=== PATIENT | female | born 1975 | race Caucasian/White ===

== ENCOUNTER 2016-06-25 12:57 | Emergency (ER) | payer BC ==
[2016-06-25 13:16] VITALS: RESP 18
[2016-06-25] MEDS ORDERED: SODIUM CHLORIDE 0.9% 1,000 ML IV STA (14:39)
[2016-06-25] MEDS ORDERED: RX INFO: IV CONTRAST WAS GIVEN 1 EACH MISC MISCELLANE PRN (14:39)
[2016-06-25 15:07] LABS: Basophils % (A) 0 %; CHCM 33.5; Eosinophils # (A) 0.2 k/uL (0-0.7); Eosinophils % (A) 1 %; HCT 43.1 % (34.0-46.0); HDW 2.52; HGB 14.7 gm/dL (11.4-16.0); Luc # (Auto) 0.15; Luc % (Auto) 1; Lymphocytes # (A) 1.7 k/uL (1.0-4.8); Lymphocytes % (A) 14 %; MCH 30.6 pg (25.0-35.0); Mean Platelet Volume 7.1; Monocytes # (A) 0.6 k/uL (0-1.0); Monocytes % (A) 5 %; Neutrophils # (A) 9.4 k/uL (1.3-7.7); Neutrophils % (A) 78 %; RBC 4.79 m/uL (3.80-5.40); RDW 12.1 % (11.5-15.5); WBC (Perox) 12.01
--- NOTE | 2016-06-25 15:15 | ED ---
Abdominal Pain HPI - General Chief Complaint: Abdominal Pain Stated Complaint: Abd Pain Time Seen by Provider: 06/25/16 14:33 Source: patient, RN notes reviewed Mode of arrival: ambulatory Limitations: no limitations - History of Present Illness Initial Comments: 40-year-old female presents emergency Department chief complaint lower abdominal pain. Patient states this started over the weekend progressively gotten worse. Patient states she went to my expressed she noticed that she had increased right lower quadrant abdominal pain, sore throat. She states that she had a strep and urinalysis which were negative. Patient was sent here for further evaluation to rule out appendicitis. Patient states he had low-grade temps at home generalized not feeling well. She denies any dysuria or hematuria at this time. Patient denies any chest pain or shortness of breath. She states that movement makes it worse sitting ordered bumps in the road. Patient states that she's had a prior hysterectomy and cholecystectomy. Patient denies any sick contacts no body aches no cough or chest congestion. - Related Data Home Medications Medication Instructions Recorded Confirmed Dexlansoprazole [Dexilant] 60 mg PO QAM 01/26/15 06/25/16 LORazepam [Ativan] 0.5 mg PO TID PRN 01/26/15 06/25/16 Acetaminophen Tab [Tylenol Tab] 975 mg PO Q4H PRN 06/25/16 06/25/16 Allergies Allergy/AdvReac Type Severity Reaction Status Date / Time gluten AdvReac Diarrhea Verified 06/25/16 14:32 Review of Systems ROS Statement: Those systems with pertinent positive or pertinent negative responses have been documented in the HPI. ROS Other: All systems not noted in ROS Statement are negative. Past Medical History Past Medical History: GERD/Reflux, Neurologic Disorder, Osteoarthritis (OA), Thyroid Disorder Additional Past Medical History / Comment(s): migraines History of Any Multi-Drug Resistant Organisms: None Reported Past Surgical History: Cholecystectomy, Uterine Ablation Additional Past Surgical History / Comment(s): episiotomy repair Past Anesthesia/Blood Transfusion Reactions: No Reported Reaction Past Psychological History: Anxiety Smoking Status: Never smoker Past Alcohol Use History: Occasional Past Drug Use History: None Reported - Past Family History Mother Family Medical History: No Reported History General Exam Limitations: no limitations General appearance: alert, in no apparent distress Head exam: Present: atraumatic, normocephalic, normal inspection Respiratory exam: Present: normal lung sounds bilaterally. Absent: respiratory distress, wheezes, rales, rhonchi, stridor Cardiovascular Exam: Present: regular rate, normal rhythm, normal heart sounds. Absent: systolic murmur, diastolic murmur, rubs, gallop, clicks GI/Abdominal exam: Present: soft, tenderness (Moderate lower quadrant tenderness ), normal bowel sounds. Absent: distended, guarding, rebound, rigid Back exam: Present: CVA tenderness (R). Absent: CVA tenderness (L) Neurological exam: Present: alert, oriented X3, CN II-XII intact Skin exam: Present: warm, dry, intact, normal color. Absent: rash Course Vital Signs 06/25/16 06/25/16 13:13 14:54 Temperature 99.5 F 98 F Pulse Rate 100 82 Respiratory 18 18 Rate Blood Pressure 110/60 116/66 O2 Sat by Pulse 97 98 Oximetry Medical Decision Making - Medical Decision Making 40-year-old female presents emergency department for lower abdominal pain. Patient is a 4 cm ovarian cyst. Patient's pain has been present for 4 days. Patient states pain seems to wax and wane. Did discuss about possible torsion neck and him. Patient's pain she states is actually improving at this time and has lessened. Patient states that she can follow-up with [facility] and return if worse for possible ultrasound. Return parameters were discussed. - Lab Data Result diagrams: 06/25/16 14:50 06/25/16 14:50 Lab Results 06/25/16 06/25/16 06/25/16 Range/Units 14:50 14:50 14:50 WBC 12.0 H (3.8-10.6) k/uL RBC 4.79 (3.80-5.40) m/uL Hgb 14.7 (11.4-16.0) gm/dL Hct 43.1 (34.0-46.0) % MCV 90.0 (80.0-100.0) fL MCH 30.6 (25.0-35.0) pg MCHC 34.0 (31.0-37.0) g/dL RDW 12.1 (11.5-15.5) % Plt Count 248 (150-450) k/uL Neutrophils % 78 % Lymphocytes % 14 % Monocytes % 5 % Eosinophils % 1 % Basophils % 0 % Neutrophils # 9.4 H (1.3-7.7) k/uL Lymphocytes # 1.7 (1.0-4.8) k/uL Monocytes # 0.6 (0-1.0) k/uL Eosinophils # 0.2 (0-0.7) k/uL Basophils # 0.0 (0-0.2) k/uL Sodium 140 (137-145) mmol/L Potassium 4.0 (3.5-5.1) mmol/L Chloride 104 (98-107) mmol/L Carbon Dioxide 24 (22-30) mmol/L Anion Gap 12 mmol/L BUN 11 (7-17) mg/dL Creatinine 0.79 (0.52-1.04) mg/dL Est GFR (MDRD) Af Amer >60 (>60 ml/min/1.73 sqM) Est GFR (MDRD) Non-Af >60 (>60 ml/min/1.73 sqM) Glucose 88 (74-99) mg/dL Calcium 9.4 (8.4-10.2) mg/dL Total Bilirubin 1.9 H (0.2-1.3) mg/dL AST 26 (14-36) U/L ALT 48 (9-52) U/L Alkaline Phosphatase 66 (38-126) U/L Total Protein 8.4 H (6.3-8.2) g/dL Albumin 4.8 (3.5-5.0) g/dL Amylase 51 (30-110) U/L Lipase 90 (23-300) U/L Heterophile Antibody Negative (Negative) Disposition Clinical Impression: Ovarian cyst Disposition: HOME SELF-CARE Condition: Stable Instructions: Ovarian Cyst (ED) Additional Instructions: Please return to the Emergency Department if symptoms worsen or any other concerns. Referrals: Chiki Tarango Jr, DO [Primary Care Provider] - 1-2 days Lay Marshall DO [Doctor of Osteopathic Medicine] - 1-2 days Time of Disposition: 16:01
[2016-06-25 15:18] LABS: ALT 48 U/L (9-52); AST 26 U/L (14-36); Alkaline Phosphatase 66 U/L (38-126); Amylase 51 U/L (30-110); Anion Gap 12 mmol/L; Blood Urea Nitrogen 11 mg/dL (7-17); Calcium 9.4 mg/dL (8.4-10.2); Carbon Dioxide 24 mmol/L (22-30); Chloride 104 mmol/L (98-107); Glucose 88 mg/dL (74-99); Non-African American GFR(MDRD) >60 (>60 ml/min/1.73 sqM); Sodium 140 mmol/L (137-145); Total Bilirubin 1.9 mg/dL (0.2-1.3); Total Protein 8.4 g/dL (6.3-8.2)
--- NOTE | 2016-06-25 15:42 | CT ---
EXAMINATION TYPE: CT abdomen pelvis w con DATE OF EXAM: 06/25/2016 3:29 PM HISTORY: Patient complains of right lower quadrant pain and nausea. CT DLP: 904mGycm Automated Exposure Control for Dose Reduction was Utilized. CONTRAST: CT scan of the abdomen and pelvis is performed without oral but with IV Contrast, patient injected wi th 100 mL of Omnipaque 300. COMPARISON: CT abdomen January 02, 2015. Older CT abdomen and pelvis December 24, 2013 FINDINGS: LUNG BASES: No significant abnormality is appreciated. LIVER/GB: Cholecystectomy clips are redemonstrated. PANCREAS: No significant abnormality is seen. SPLEEN: No significant abnormality is seen. ADRENALS: No significant abnormality is seen. KIDNEYS: There are 2 small calculi lower pole level left kidney measuring 3 mm or smaller in size red emonstrated felt stable. BOWEL: Normal-appearing appendix is seen from cecum. Some diverticula are scattered throughout the co radha. There is no CT evidence for acute diverticulitis. There is no suspicious small or large bowel di latation. UTERUS/ADNEXA: There are scattered pelvic phleboliths redemonstrated. Uterus is surgically absent or markedly atrophic in appearance. Remnant left ovary is normal in size on axial image 63. In the right ovary or adnexa there is 4.7 x 4.2 cm low dense oval well-circumscribed cyst on axial image 63 now p resent. LYMPH NODES: No greater than 1cm abdominal or pelvic lymph nodes are appreciated. OSSEOUS STRUCTURES: No significant abnormality is seen. OTHER: No significant additional abnormality is seen. IMPRESSION: No CT evidence for acute appendicitis. There is 4.7 cm low dense probable simple cyst in right ovary. If there is clinical concern for torsion given history of right-sided pain further inves tigation with pelvic ultrasound correlation would be advised.
[2016-06-25 16:38] VITALS: BP 117/67; PULSE 89; TEMP 98.7
== END 2016-06-25 16:37 | disposition home or self-care (01) ==
LOC: EC 12:57
DX: N83.201 Unspecified ovarian cyst, right side (principal); K21.9 Gastro-esophageal reflux disease without esophagitis; Z79.899 Other long term (current) drug therapy; Z91.048 Other nonmedicinal substance allergy status
CPT/HCPCS: 36415; 80053; 82150; 83690; 85025; 86308; 74177; 99284; 96360; Q9967

== ENCOUNTER → 2016-07-04 | Outpatient (CLI) | payer BC | END | disposition home or self-care (01) | LOC: LABWHC1 08:54 | PROVIDERS: ATTEND Obstetrics & Gynecology | DX: N83.201 Unspecified ovarian cyst, right side (principal) | CPT/HCPCS: 36415; 86304 ==

== ENCOUNTER → 2017-05-11 | Outpatient (CLI) | payer BC ==
--- NOTE | 2017-05-11 10:58 | XR ---
EXAMINATION TYPE: XR abdomen 1V DATE OF EXAM: 05/11/2017 10:34 AM CLINICAL HISTORY: Hematuria per order TECHNIQUE: Two supine KUB images of the abdomen are obtained. COMPARISON: CT abdomen pelvis June 25, 2016 FINDINGS: Small renal calculi seen on CT are not clearly identified on plain films. Scattered pelvic phleboliths are seen. Scattered gas is seen in non-distended small bowel loops. Gas and fecal material is seen in non-diste nded colon. Cholecystectomy clips are noted. Visualized osseous structures are intact. IMPRESSION: There are 2-3 tiny left-sided renal calculi measuring 2 mm or smaller in size lower pole level left kidney on CT not clearly seen on plain films.
== END | disposition home or self-care (01) ==
LOC: RADXRMAIN 10:22
PROVIDERS: ATTEND Family Medicine
DX: N20.0 Calculus of kidney (principal)
CPT/HCPCS: 74018

== ENCOUNTER → 2018-03-01 | Outpatient (CLI) | payer BC ==
--- NOTE | 2018-03-04 10:36 | MM ---
Reason for exam: screening (asymptomatic). Last mammogram was performed 5 years and 3 months ago. History: Patient had first child at age 33. Took hormonal contraceptives for 16 years. Physical Findings: A clinical breast exam by your physician is recommended on an annual basis and results should be correlated with mammographic findings. MG 3D Screening Mammo W/Cad Bilateral CC and MLO view(s) were taken. Prior study comparison: November 17, 2012, bilateral digital screening mammo w/CAD. The breast tissue is heterogeneously dense. This may lower the sensitivity of mammography. Focal asymmetry upper left MLO view, 10.4cm from nipple. ASSESSMENT: Incomplete: need additional imaging evaluation, BI-RAD 0 RECOMMENDATION: Special view mammogram of the left breast. If lesion persists on supplemental views, image directed ultrasound is recommended. [facility] will attempt to contact patient to return for supplemental views and ultrasound if indicated.
== END ==
LOC: RADMAMWWP 07:03
PROVIDERS: ATTEND Obstetrics & Gynecology
DX: Z12.31 Encounter for screening mammogram for malignant neoplasm of breast (principal)
CPT/HCPCS: 77063; 77067

== ENCOUNTER → 2018-03-22 | Outpatient (CLI) | payer BC ==
--- NOTE | 2018-03-26 10:57 | MM ---
Reason for exam: additional evaluation requested from abnormal screening. Last mammogram was performed 1 month ago. History: Patient had first child at age 33. Took hormonal contraceptives for 16 years. Physical Findings: Nurse did not find any significant physical abnormalities on exam. MG 3D Work Up W/Cad LT LM, spot compression MLO, and MLO view(s) were taken of the left breast. Prior study comparison: March 01, 2018, bilateral MG 3d screening mammo w/cad. November 17, 2012, bilateral digital screening mammo w/CAD. There are scattered fibroglandular densities. The previously seen left posterior depth superior asymmetry does not persist on the lateral view and although improved on the spot compression views it does still persist. and an ultrasound will be performed. ASSESSMENT: Incomplete: need additional imaging evaluation, BI-RAD 0 RECOMMENDATION: Ultrasound of the left breast.
--- NOTE | 2018-03-26 11:00 | USB ---
Reason for exam: additional evaluation requested from prior study. History: Patient had first child at age 33. Took hormonal contraceptives for 16 years. US Breast Workup Limited LT Left limited breast ultrasound including focal area of concern, retroareolar and axilla demonstrates no cystic or solid lesion seen. No sonographic correlation for the mammographic asymmetry. These results were verbally communicated with the patient and result sheet given to the patient on 03/22/18. ASSESSMENT: Probably benign, BI-RAD 3 RECOMMENDATION: Follow-up diagnostic mammogram of the left breast in 6 months.
== END ==
LOC: RADMAMWWP 08:17
PROVIDERS: ATTEND Obstetrics & Gynecology
DX: R92.8 Other abnormal and inconclusive findings on diagnostic imaging of breast (principal)
CPT/HCPCS: 77061; 77065

== ENCOUNTER 2018-09-18 22:51 | Observation (INO) | payer BC ==
--- NOTE | 2018-09-18 23:32 | ED ---
Abdominal Pain HPI - General Chief Complaint: Abdominal Pain Stated Complaint: Abdominal Pain Time Seen by Provider: 09/18/18 23:31 Source: patient Mode of arrival: ambulatory Limitations: no limitations - History of Present Illness Initial Comments: Cynthia 43-year-old female who presents the emergency department today for evaluation of sudden onset of right lower quadrant abdominal pain. Patient reports that she has a extensive history of ovarian cysts and can usually deal with the pain however this evening she ate dinner around 9 PM she does admit that she had one alcoholic drink but did not feel intoxicated, she reports that after eating she started up and had immediate stabbing pain in her right lower quadrant. She's tried to tolerate it but the pain is progressively worsened and is unbearable. Patient port this pain is much worse than her typical ovarian cyst pain. Patient reports she feels nauseated but has not vomited. She's not had any diarrhea she had a normal bowel movement yesterday. Patient has a history of a cholecystectomy in the past she still has her appendix in place. She is also status post hysterectomy with no concern for sexually transmitted infections. - Related Data Home Medications Medication Instructions Recorded Confirmed Dexlansoprazole [Dexilant] 60 mg PO QAM 01/26/15 06/25/16 LORazepam [Ativan] 0.5 mg PO TID PRN 01/26/15 06/25/16 Acetaminophen Tab [Tylenol Tab] 975 mg PO Q4H PRN 06/25/16 06/25/16 Allergies Allergy/AdvReac Type Severity Reaction Status Date / Time gluten AdvReac Diarrhea Verified 03/22/18 09:15 Review of Systems ROS Statement: Those systems with pertinent positive or pertinent negative responses have been documented in the HPI. ROS Other: All systems not noted in ROS Statement are negative. Past Medical History Past Medical History: GERD/Reflux, Neurologic Disorder, Osteoarthritis (OA), Th yroid Disorder Additional Past Medical History / Comment(s): migraines, ovarian cysts. History of Any Multi-Drug Resistant Organisms: None Reported Past Surgical History: Cholecystectomy, Uterine Ablation Additional Past Surgical History / Comment(s): episiotomy repair Past Anesthesia/Blood Transfusion Reactions: No Reported Reaction Past Psychological History: Anxiety Smoking Status: Never smoker Past Alcohol Use History: Occasional Past Drug Use History: None Reported - Past Family History Mother Family Medical History: No Reported History General Exam - General Exam Comments Initial Comments: Physical Exam GENERAL: Patient is well-developed and well-nourished. appears uncomfortable HEENT: Normocephalic, Atraumatic. EYES: PERRL, EOMI PULMONARY: Unlabored respirations. No audible rales rhonchi or wheezing was noted. CARDIOVASCULAR: There is a regular rate and rhythm without any murmurs gallops or rubs. ABDOMEN: NABS Positive Rovsing sign Positive McBurney's point tenderness Involuntary guarding of the right lower quadrant SKIN: Skin is clear with no lesions or rashes and otherwise unremarkable. : Deferred NEUROLOGIC: Patient is alert and oriented x3. Moving all extremities spontaneously MUSCULOSKELETAL: Normal extremities with adequate strength and full range of motion. No lower extremity swelling or edema. No calf tenderness. PSYCHIATRIC: Normal psychiatric evaluation Limitations: no limitations Course Vital Signs 09/18/18 23:17 Temperature 98.3 F Pulse Rate 74 Respiratory 18 Rate Blood Pressure 121/82 O2 Sat by Pulse 99 Oximetry Medical Decision Making - Medical Decision Making Patient was seen and evaluated history is obtained from the patient Patient was concerned that she has an ovarian cyst however based on my physical exam I do believe the patient has acute appendicitis, labs and computed lianet ography scan were ordered Patient declined pain medication as it usually makes her nausea worse CT confirms acute appendicitis next 5 patient care was discussed with surgeon on-call Dr. Lynn who recommends patient be placed in obs, NPO, plan for OR in the morning Patient updated and agreeable to plan Patient did want to note that she had 1 alcoholic beverage at dinner but was not intoxicated, she wanted to ensure anesthesia was aware of this. - Lab Data Result diagrams: 09/19/18 02:05 Lab Results 09/19/18 Range/Units 02:05 WBC 14.3 H (3.8-10.6) k/uL RBC 4.05 (3.80-5.40) m/uL Hgb 12.3 (11.4-16.0) gm/dL Hct 37.0 (34.0-46.0) % MCV 91.4 (80.0-100.0) fL MCH 30.3 (25.0-35.0) pg MCHC 33.2 (31.0-37.0) g/dL RDW 12.8 (11.5-15.5) % Plt Count 214 (150-450) k/uL Neutrophils % 76 % Lymphocytes % 15 % Monocytes % 5 % Eosinophils % 2 % Basophils % 0 % Neutrophils # 10.9 H (1.3-7.7) k/uL Lymphocytes # 2.2 (1.0-4.8) k/uL Monocytes # 0.8 (0-1.0) k/uL Eosinophils # 0.2 (0-0.7) k/uL Basophils # 0.1 (0-0.2) k/uL Disposition Clinical Impression: Acute appendicitis Disposition: ADMITTED IP TO THIS HOSP Condition: Stable Is patient prescribed a controlled substance at d/c from ED?: No Referrals: Chiki Tarango Jr, DO [Primary Care Provider] - 1-2 days
--- NOTE | 2018-09-19 02:07 | CT ---
EXAM: CT Abdomen and Pelvis With Intravenous Contrast CLINICAL HISTORY: ITS.REASON CT Reason: Pain RLQ concern for appy TECHNIQUE: Axial computed tomography images of the abdomen and pelvis with intravenous contrast. CTDI is 21 mGy and DLP is 953 mGy-cm. This CT exam was performed using one or more of the following dose reduction techniques: automated exposure control, adjustment of the mA and/or kV according to patient size, and/or use of iterative reconstruction technique. COMPARISON: 06/25/16 CT abdomen FINDINGS: Lung bases: No mass. No consolidation. ABDOMEN: Liver: Steatosis. Gallbladder and bile ducts: Removed. Pancreas: Unremarkable. Spleen: Unremarkable. Adrenals: Unremarkable. Kidneys and ureters: No hydronephrosis. Stomach and bowel: No bowel obstruction. No bowel wall thickening. PELVIS: Appendix: Dilated to 10 mm with surrounding stranding. Bladder: Unremarkable. Reproductive: Unremarkable. ABDOMEN and PELVIS: Intraperitoneal space: Unremarkable. Bones/joints: No acute fractures. Soft tissues: Unremarkable. Vasculature: No abdominal aortic aneurysm. Lymph nodes: No enlarged lymph nodes. IMPRESSION: 1. Evidence of acute appendicitis. No abscess, perforation, or bowel obstruction. 2. Hepatic steatosis. <MYCVCSECTION> Critical Value Communications 09/19/18 02:19 Verify Receipt Verified receipt with [facility] in ER for Dr. Andre on 09/19 02:21 (-04:00)
[2018-09-19 02:20] LABS: Basophils # (A) 0.1 k/uL (0-0.2); Basophils % (A) 0 %; Eosinophils # (A) 0.2 k/uL (0-0.7); Eosinophils % (A) 2 %; HGB 12.3 gm/dL (11.4-16.0); Lymphocytes # (A) 2.2 k/uL (1.0-4.8); Lymphocytes % (A) 15 %; MCH 30.3 pg (25.0-35.0); MCHC 33.2 g/dL (31.0-37.0); MCV 91.4 fL (80.0-100.0); Mean Platelet Volume 7.1; Monocytes # (A) 0.8 k/uL (0-1.0); Monocytes % (A) 5 %; Neutrophils # (A) 10.9 k/uL (1.3-7.7); Neutrophils % (A) 76 %; Platelet Count 214 k/uL (150-450); RBC 4.05 m/uL (3.80-5.40); RDW 12.8 % (11.5-15.5); WBC 14.3 k/uL (3.8-10.6)
[2018-09-19] MEDS ORDERED: ONDANSETRON 4 MG/2 ML VIAL IVP STA (02:20)
[2018-09-19] MEDS ORDERED: ONDANSETRON 4 MG/2 ML VIAL IVP PRN (02:23)
[2018-09-19] MEDS ORDERED: NALOXONE 0.4 MG/ML 1 ML VIAL IV PRN (02:23)
[2018-09-19] MEDS ORDERED: MORPHINE SULFATE 4 MG/ML SYRINGE IV PRN (02:23)
[2018-09-19 02:30] LABS: ALT 55 U/L (9-52); AST 27 U/L (14-36); African American GFR (CKD) >90 (>60 ml/min/1.73 sqM); Albumin 3.8 g/dL (3.5-5.0); Alkaline Phosphatase 45 U/L (38-126); Amylase 40 U/L (30-110); Blood Urea Nitrogen 15 mg/dL (7-17); Calcium 8.8 mg/dL (8.4-10.2); Carbon Dioxide 23 mmol/L (22-30); Glucose 98 mg/dL (74-99); Potassium 3.6 mmol/L (3.5-5.1); Sodium 138 mmol/L (137-145); Total Bilirubin 0.9 mg/dL (0.2-1.3); Total Protein 6.5 g/dL (6.3-8.2)
[2018-09-19 02:37] LABS: Anion Gap 9 mmol/L; Chloride 106 mmol/L (98-107)
[2018-09-19 02:38] LABS: Appearance,Urine Clear (Clear); Bilirubin,Urine Negative (Negative); Blood,Urine Negative (Negative); Color,Urine Light Yellow; Glucose,Urine (UA) Negative (Negative); Ketones,Urine Negative (Negative); Leukocyte Esterase,Urine Negative (Negative); Nitrite,Urine Negative (Negative); Protein,Urine Negative (Negative); Urobilinogen,Urine <2.0 mg/dL (<2.0)
[2018-09-19] MEDS: SODIUM CHLORIDE 0.9% 1,000 ML IV SCH ×2 (02:41→14:47)
[2018-09-19] MEDS: PIPERACILLIN-TAZOBACTAM 3.375 GM in SODIUM CHLORIDE 0.9% 100 ML IVPB SCH ×3 (03:24→19:16)
[2018-09-19 04:00] VITALS: BMI 29.0
--- NOTE | 2018-09-19 08:44 | P.GSHP ---
History of Present Illness H&P Date: 09/19/18 Chief Complaint: Right-sided abdominal pain 43-year-old female known to our service. Patient began having pain last night around 9 PM. Pain became more more severe and came to the ER late last night. Pain was initially in the mid abdomen but radiated to the right lower quadrant. Now it is only in the right lower quadrant. White blood cell count was slightly elevated. No fevers or chills. Some nausea. CAT scan was performed showing acute appendicitis. Patient does have history of occasional episodes of right lower quadrant pain at times. Thought was related to an ovarian cyst. No rectal bleeding or melena. - Review of Systems Comment: The patient denies any acute changes in vision or hearing, no dysphagia or odynophagia, no chest pain or shortness of breath, no dysuria or hematuria, no headache, no runny nose, no rectal bleeding or melena, no unexplained weight loss Past Medical History Past Medical History: GERD/Reflux, Osteoarthritis (OA), Thyroid Disorder Additional Past Medical History / Comment(s): migraines, ovarian cysts History of Any Multi-Drug Resistant Organisms: None Reported Past Surgical History: Cholecystectomy, Uterine Ablation Additional Past Surgical History / Comment(s): episiotomy repair, appendectomy 09/19/18 Past Anesthesia/Blood Transfusion Reactions: No Reported Reaction Past Psychological History: Anxiety Smoking Status: Never smoker Past Alcohol Use History: Occasional Past Drug Use History: None Reported - Past Family History Mother Family Medical History: No Reported History Medications and Allergies Home Medications Medication Instructions Recorded Confirmed Type LORazepam [Ativan] 0.5 mg PO TID PRN 01/26/15 09/19/18 History Rizatriptan Benzoate [Rizatriptan] 10 mg PO DAILY PRN 09/19/18 09/19/18 History Allergies Allergy/AdvReac Type Severity Reaction Status Date / Time gluten AdvReac Diarrhea Verified 09/19/18 08:11 Surgical - Exam Vital Signs Temp Pulse Resp BP Pulse Ox 98.3 F 74 18 121/82 99 09/18/18 23:17 09/18/18 23:17 09/18/18 23:17 09/18/18 23:17 09/18/18 23:17 Physical exam: General: Well-developed, well-nourished HEENT: Normocephalic, sclerae nonicteric Abdomen: Moderate right lower quadrant tenderness, nondistended Extremities: No edema Neuro: Alert and oriented Results - Labs 09/19/18 02:05 09/19/18 02:05 Abnormal Lab Results - Last 24 Hours (Table) 09/19/18 09/19/18 09/19/18 Range/Units 02:05 02:05 02:23 WBC 14.3 H (3.8-10.6) k/uL Neutrophils # 10.9 H (1.3-7.7) k/uL ALT 55 H (9-52) U/L Ur Specific Mckenna 1.050 H (1.001-1.035) Diabetes panel 09/19/18 Range/Units 02:05 Sodium 138 (137-145) mmol/L Potassium 3.6 (3.5-5.1) mmol/L Chloride 106 (98-107) mmol/L Carbon Dioxide 23 (22-30) mmol/L BUN 15 (7-17) mg/dL Creatinine 0.61 (0.52-1.04) mg/dL Glucose 98 (74-99) mg/dL Calcium 8.8 (8.4-10.2) mg/dL AST 27 (14-36) U/L ALT 55 H (9-52) U/L Alkaline Phosphatase 45 (38-126) U/L Total Protein 6.5 (6.3-8.2) g/dL Albumin 3.8 (3.5-5.0) g/dL Calcium panel 09/19/18 Range/Units 02:05 Calcium 8.8 (8.4-10.2) mg/dL Albumin 3.8 (3.5-5.0) g/dL Pituitary panel 09/19/18 Range/Units 02:05 Sodium 138 (137-145) mmol/L Potassium 3.6 (3.5-5.1) mmol/L Chloride 106 (98-107) mmol/L Carbon Dioxide 23 (22-30) mmol/L BUN 15 (7-17) mg/dL Creatinine 0.61 (0.52-1.04) mg/dL Glucose 98 (74-99) mg/dL Calcium 8.8 (8.4-10.2) mg/dL Adrenal panel 09/19/18 Range/Units 02:05 Sodium 138 (137-145) mmol/L Potassium 3.6 (3.5-5.1) mmol/L Chloride 106 (98-107) mmol/L Carbon Dioxide 23 (22-30) mmol/L BUN 15 (7-17) mg/dL Creatinine 0.61 (0.52-1.04) mg/dL Glucose 98 (74-99) mg/dL Calcium 8.8 (8.4-10.2) mg/dL Total Bilirubin 0.9 (0.2-1.3) mg/dL AST 27 (14-36) U/L ALT 55 H (9-52) U/L Alkaline Phosphatase 45 (38-126) U/L Total Protein 6.5 (6.3-8.2) g/dL Albumin 3.8 (3.5-5.0) g/dL Assessment and Plan (1) Acute appendicitis Narrative/Plan: Clinical scenario discussed with the patient in detail. We'll proceed with laparoscopic, possible open appendectomy at this time. Risks of bleeding, infection, bladder and bowel injury, abscess, ureteral injury, conversion were reviewed. She understands and wishes to proceed. Current Visit: Yes Status: Acute Code(s): K35.80 - UNSPECIFIED ACUTE APPENDICITIS SNOMED Code(s): 57390137
[2018-09-19] MEDS ORDERED: MIDAZOLAM 2 MG/2 ML VIAL ONE (09:30)
[2018-09-19] MEDS ORDERED: GLYCOPYRROLATE 0.2 MG/ML 2 ML VIAL ONE (09:30)
[2018-09-19] MEDS ORDERED: PROPOFOL 10 MG/ML 20 ML VIAL IV ONE (09:30)
[2018-09-19] MEDS ORDERED: LIDOCAINE 1% INJ 10MG/ML (20 ML MDV) ONE (09:30)
[2018-09-19] MEDS ORDERED: fentaNYL (PF) 50 MCG/ML 2 ML AMP ONE (09:30)
[2018-09-19] MEDS ORDERED: SUCCINYLCHOLINE CHLORIDE 100 MG/5 ML SYR IV ONE (09:30)
[2018-09-19] MEDS ORDERED: ROCURONIUM BROMIDE 10 MG/ML 10 ML VIAL IV ONE (09:30)
[2018-09-19] MEDS ORDERED: NEOSTIGMINE 1 MG/ML 10 ML VIAL ONE (09:30)
[2018-09-19] MEDS ORDERED: IV FLUID CONTINUATION 400 ML IV ONE (09:33)
[2018-09-19] MEDS ORDERED: LACTATED RINGERS 1,000 ML IV ONE ×2 (09:51→10:51)
[2018-09-19] MEDS ORDERED: BUPIVACAINE (PF) 0.25% 30 ML VIAL SQ ONE (10:01)
--- NOTE | 2018-09-19 10:37 | P.OP ---
Date of Procedure: 09/19/18 Procedure(s) Performed: PREOPERATIVE DIAGNOSIS: Acute appendicitis POSTOPERATIVE DIAGNOSIS: Same PROCEDURE: Laparoscopic appendectomy SURGEON: Shane EBL: 5 mL ANESTHESIA: General COMPLICATIONS: None OPERATIVE PROCEDURE: The patient was brought and placed on the operating table in the supine position. The patient was placed under general anesthesia. The abdomen was prepped and draped in the usual sterile fashion. A small vertical infraumbilical incision was made. The fascia was retracted anteriorly with Marshal forceps. The Veress needle was advanced into the peritoneal cavity. The saline drop test was normal. Insufflation took place to 15 mmHg. A 5 mm trocar was then placed. An additional 5 mm suprapubic trocar was placed under direct visualization as well as a 12 mm left lower quadrant trocar under direct visualization. The appendix was inspected. It was acutely inflamed. The mesoappendix was dissected. The base of the appendix was divided using a linear 45 mm intestinal stapler. The mesentery itself was righted using the LigaSure device. The area was then irrigated. No further purulence or bleeding was seen. The appendix was brought out of the peritoneal cavity through the left lower quadrant trocar site with an Endo Catch bag. The fascia at the 12 mm site was closed using a Savage-Priyank 0 Vicryl stitch. The skin at all 3 sites was closed using 4-0 Monocryl sutures. Skin glue was then applied. DISPOSITION: Stable to recovery room
[2018-09-19] MEDS ORDERED: ONDANSETRON 4 MG/2 ML VIAL IVP ONE (10:38)
[2018-09-19] MEDS ORDERED: HYDROmorphone 1 MG/ML 1 ML SYRINGE IVP ONE ×2 (10:40→10:45)
[2018-09-19] MEDS ORDERED: METOCLOPRAMIDE 5 MG/ML 2 ML VIAL IVP ONE (10:58)
[2018-09-19] MEDS: HYDROcodone/APAP 5-325MG 1 EACH TAB PO PRN ×3 (14:43→23:32)
[2018-09-20] MEDS: SODIUM CHLORIDE 0.9% 1,000 ML IV SCH (00:29)
[2018-09-20] MEDS: PIPERACILLIN-TAZOBACTAM 3.375 GM in SODIUM CHLORIDE 0.9% 100 ML IVPB SCH ×2 (03:51→12:57)
[2018-09-20] MEDS: HYDROcodone/APAP 5-325MG 1 EACH TAB PO PRN (08:47)
[2018-09-20] MEDS ORDERED: METOCLOPRAMIDE 5 MG/ML 2 ML VIAL IVP STA (09:35)
[2018-09-20] MEDS ORDERED: Potassium Replacement Protocol 1 EACH MISC MISCELLANE PRN ×2 (10:49→11:48)
[2018-09-20 11:25] VITALS: BP 103/67; PULSE 61; RESP 18; TEMP 98.1
--- NOTE | 2018-09-20 11:50 | P.DS ---
Providers Date of admission: 09/19/18 02:29 Expected date of discharge: 09/20/18 Attending physician: Tito Lynn Primary care physician: [facility] Course: 43-year-old female who presents to emergency room with abdominal pain. Patient was found to have acute appendicitis and underwent laparoscopic appendectomy with Dr. Lynn on 09/19/2018. Patient is doing well postoperatively without any immediate complications. Vital signs have been stable. She is tolerating diet. Denies nausea or vomiting. She is stable for discharge home today. Please see EMR for further hospital course details Discharge diagnosis 1. Acute appendicitis Nurse practitioner note has been reviewed by physician. Signing provider agrees with the documented findings, assessment, and plan of care. Patient Condition at Discharge: Stable Plan - Discharge Summary New Discharge Prescriptions: New Hydrocodone/Acetaminophen [[place] 5-325] 1 tab PO Q6HR PRN 3 Days #10 tab PRN Reason: Pain Docusate [Colace] 100 mg PO BID #30 capsule No Action LORazepam [Ativan] 0.5 mg PO TID PRN PRN Reason: Anxiety Rizatriptan Benzoate [Rizatriptan] 10 mg PO DAILY PRN PRN Reason: Migraine Headache Discharge Medication List LORazepam [Ativan] 0.5 mg PO TID PRN 01/26/15 [History] Hydrocodone/Acetaminophen [[place] 5-325] 1 tab PO Q6HR PRN 3 Days #10 tab 09/19/18 [Rx] Rizatriptan Benzoate [Rizatriptan] 10 mg PO DAILY PRN 09/19/18 [History] Docusate [Colace] 100 mg PO BID #30 capsule 09/20/18 [Rx] Follow up Appointment(s)/Referral(s): Tito Lynn MD [Medical Doctor] - 1 Week (September 29, at 3:30pm...need drivers license, insurance card, arrive early to fill out paperwork) Chiki Tarango DO [Primary Care Provider] - 1 Week (september 28 at 9:00am) Activity/Diet/Wound Care/Special Instructions: No driving while taking [place] No lifting over 10 pounds You may shower. No soaking or tub baths Very light activity until you are reevaluated at your follow up appointment with your surgeon If no bowel movement in a few days, notify your surgeon
[2018-09-20] MEDS ORDERED: POTASSIUM CHLORIDE ER 20 MEQ TAB.ER PO SCH (12:00)
== END 2018-09-20 12:40 | disposition home or self-care (01) ==
LOC: EC 22:51 → 6PED 09-19 02:29
PROVIDERS: ADMIT Surgery; ATTEND Surgery
DX: K35.80 Unspecified acute appendicitis (principal); F41.9 Anxiety disorder, unspecified; K21.9 Gastro-esophageal reflux disease without esophagitis; N83.209 Unspecified ovarian cyst, unspecified side; Z79.899 Other long term (current) drug therapy; Z90.710 Acquired absence of both cervix and uterus; G43.909 Migraine, unspecified, not intractable, without status migrainosus
CPT/HCPCS: 44970; 96365; 96375; 99285; 36415; 88304; 80053; 82150; 83690; 83735; 85025; 81003; 88342; 74177; G0378 ×2; J2543 ×2; J2250; J2270; J2710; J2765 ×2; J2405; J2001; J3010; J1170; J0330; J2704; Q9967

== ENCOUNTER → 2018-10-01 | Outpatient (CLI) | payer BC ==
--- NOTE | 2018-10-01 08:23 | MM ---
Reason for exam: follow-up at short interval from prior study. Last mammogram was performed 6 months ago. History: Patient had first child at age 33. Took hormonal contraceptives for 16 years. Physical Findings: Nurse did not find any significant physical abnormalities on exam. MG 3D Diag Mammo W/Cad LT CC and MLO view(s) were taken of the left breast. Prior study comparison: March 22, 2018, left breast MG 3d work up w/cad LT. March 01, 2018, bilateral MG 3d screening mammo w/cad. The breast tissue is heterogeneously dense. This may lower the sensitivity of mammography. Benign appearing calcifications in the left breast. No suspicious abnormality. The previously seen focal asymmetry does not persist. These results were verbally communicated with the patient and result sheet given to the patient on 10/01/18. ASSESSMENT: Benign, BI-RAD 2 RECOMMENDATION: Return to routine screening mammogram schedule for both breasts. Back on schedule for February 2019.
== END | disposition home or self-care (01) ==
LOC: RADMAMWWP 09-01 07:00
PROVIDERS: ATTEND Obstetrics & Gynecology
DX: R92.8 Other abnormal and inconclusive findings on diagnostic imaging of breast (principal)
CPT/HCPCS: 77061; 77065

== ENCOUNTER 2022-01-10 23:32 | Emergency (ER) | payer BC ==
[2022-01-10 23:35] VITALS: RESP 18; TEMP 98.2
[2022-01-10] MEDS ORDERED: METOCLOPRAMIDE 5 MG/ML 2 ML VIAL IVP STA (23:52)
[2022-01-10] MEDS ORDERED: SODIUM CHLORIDE 0.9% 1,000 ML IV STA (23:52)
[2022-01-10] MEDS ORDERED: diphenhydrAMINE 50 MG/ML 1 ML VIAL IVP STA (23:52)
[2022-01-10] MEDS ORDERED: MORPHINE SULFATE 4 MG/ML SYRINGE IV STA (23:52)
--- NOTE | 2022-01-11 00:08 | ED ---
Headache HPI - General Chief Complaint: Headache Stated Complaint: Headache Time Seen by Provider: 01/10/22 23:45 Source: RN notes reviewed Mode of arrival: ambulatory Limitations: no limitations - History of Present Illness Initial Comments: This is a pleasant 46-year-old female with a history of long-standing migraine headaches. Patient states that today she started getting a headache which was worse than usual at 4 PM. Patient states the headache seems to be affecting her neck and the occipital region. Patient states she usually gets the headache in her right frontal area. Patient also states that she had nausea and vomiting with this headache which she normally doesn't get. Patient did take her rizatriptan at home without relief. Patient continues to have headache. Patient states she also had some visual which is actually resolved. Some blurred vision with flashing lights. Patient denying any weakness. No focal deficits. Patient states she did ascertain that she had some tingling in both of her feet earlier today which is resolved. no fever or chills, no changesin hearing, no sore throat or difficulty with speech, no neck pain, no chest pain or shortness of breath, no abdominal pain, no nausea or vomiting, no changes in urination or bowel movements, no numbness or tingling, no extremity pain, no skin rashes or lesions. Past medical, surgical, social, and family history reviewed. - Related Data Home Medications Medication Instructions Recorded Confirmed LORazepam [Ativan] 0.5 mg PO TID PRN 01/26/15 09/19/18 Rizatriptan Benzoate [Rizatriptan] 10 mg PO DAILY PRN 09/19/18 09/19/18 Previous Rx's Medication Instructions Recorded Docusate [Colace] 100 mg PO BID #30 capsule 09/20/18 Hydrocodone/Acetaminophen [[place] 1 tab PO Q6HR PRN 3 Days #12 tab 09/20/18 5-325] Allergies Allergy/AdvReac Type Severity Reaction Status Date / Time gluten AdvReac Diarrhea Verified 01/10/22 23:35 Review of Systems ROS Statement: Those systems with pertinent positive or pertinent negative responses have been documented in the HPI. ROS Other: All systems not noted in ROS Statement are negative. Past Medical History Past Medical History: GERD/Reflux, Osteoarthritis (OA), Thyroid Disorder Additional Past Medical History / Comment(s): migraines, ovarian cysts History of Any Multi-Drug Resistant Organisms: None Reported Past Surgical History: Cholecystectomy, Uterine Ablation Additional Past Surgical History / Comment(s): episiotomy repair, appendectomy 09/19/18 Past Anesthesia/Blood Transfusion Reactions: No Reported Reaction Past Psychological History: Anxiety Smoking Status: Never smoker Past Alcohol Use History: Occasional Past Drug Use History: None Reported - Past Family History Mother Family Medical History: No Reported History General Exam Limitations: no limitations General appearance: alert, in no apparent distress Head exam: Present: atraumatic, normocephalic, normal inspection Eye exam: Present: normal appearance, PERRL, EOMI. Absent: scleral icterus, conjunctival injection, periorbital swelling ENT exam: Present: normal exam, normal oropharynx, mucous membranes moist, normal external ear exam. Absent: mucous membranes dry Neck exam: Present: normal inspection, full ROM. Absent: tenderness, meningismus, lymphadenopathy Respiratory exam: Present: normal lung sounds bilaterally. Absent: respiratory distress, wheezes, rales, rhonchi, stridor, chest wall tenderness, accessory muscle use, decreased breath sounds, prolonged expiratory Cardiovascular Exam: Present: regular rate, normal rhythm, normal heart sounds. Absent: systolic murmur, diastolic murmur, rubs, gallop, clicks GI/Abdominal exam: Present: soft, normal bowel sounds. Absent: distended, tenderness, guarding, rebound, rigid Extremities exam: Present: normal inspection, full ROM, normal capillary refill. Absent: tenderness, pedal edema, joint swelling, calf tenderness Back exam: Present: normal inspection Neurological exam: Present: alert, oriented X3, CN II-XII intact, normal gait, motor sensory deficit. Absent: abnormal gait, reflexes normal Psychiatric exam: Present: normal affect, normal mood Skin exam: Present: warm, dry, intact, normal color. Absent: rash Course Vital Signs 01/10/22 01/11/22 01/11/22 23:33 00:13 00:53 Temperature 98.2 F Pulse Rate 77 120 H 80 Respiratory 18 18 18 Rate Blood Pressure 163/105 154/122 135/96 O2 Sat by Pulse 99 100 100 Oximetry - Reevaluation(s) Reevaluation #1: 01/11/22 02:43 Medical record is reviewed Symptoms are improved here in the emergency department Patient is informed of results and questions answered Patient in no distress Medical Decision Making - Medical Decision Making Patient was rechecked prior to discharge and is in no distress, states she is improved. Patient's CT of her head as well as CT angiogram of the head and neck were all normal and free of any acute pathology. Given the patient's history of migraine headaches and to have her follow-up with both her primary care physician as well as neurology. I discussed all findings and the patient. Patient concurs with this treatment plan. Patient was told to return to the ER for any signs or symptoms worsen. Told to return immediately if any other problems arise. All questions answered. Treatment plan discussed. Patient in agreement Every effort has been made to ensure accuracy of this dictation. However, due to the limitations of electronic medical records and dictation devices, errors in charting still occur. The case was discussed in detail with ED attending physician. Presentation, findings, treatment plan discussed in detail. Risk Consultant Dr. Barbosa COVID-19 test pending - Lab Data Result diagrams: 01/10/22 23:53 01/10/22 23:53 Lab Results 01/10/22 01/10/22 Range/Units 23:53 23:53 WBC 13.1 H (3.8-10.6) k/uL RBC 4.61 (3.80-5.40) m/uL Hgb 14.6 (11.4-16.0) gm/dL Hct 42.9 (34.0-46.0) % MCV 93.1 (80.0-100.0) fL MCH 31.7 (25.0-35.0) pg MCHC 34.0 (31.0-37.0) g/dL RDW 12.5 (11.5-15.5) % Plt Count 255 (150-450) k/uL MPV 8.0 Neutrophils % 66 % Lymphocytes % 26 % Monocytes % 5 % Eosinophils % 1 % Basophils % 1 % Neutrophils # 8.6 H (1.3-7.7) k/uL Lymphocytes # 3.4 (1.0-4.8) k/uL Monocytes # 0.6 (0-1.0) k/uL Eosinophils # 0.1 (0-0.7) k/uL Basophils # 0.1 (0-0.2) k/uL Sodium 139 (137-145) mmol/L Potassium 3.9 (3.5-5.1) mmol/L Chloride 104 (98-107) mmol/L Carbon Dioxide 23 (22-30) mmol/L Anion Gap 12 mmol/L BUN 11 (7-17) mg/dL Creatinine 0.67 (0.52-1.04) mg/dL Est GFR (CKD-EPI)AfAm >90 (>60 ml/min/1.73 sqM) Est GFR (CKD-EPI)NonAf >90 (>60 ml/min/1.73 sqM) Glucose 101 H (74-99) mg/dL Calcium 9.2 (8.4-10.2) mg/dL Total Bilirubin 1.4 H (0.2-1.3) mg/dL AST 34 (14-36) U/L ALT 60 H (4-34) U/L Alkaline Phosphatase 58 (38-126) U/L Total Protein 7.8 (6.3-8.2) g/dL Albumin 4.9 (3.5-5.0) g/dL Disposition Clinical Impression: Migraine headache with aura Disposition: HOME SELF-CARE Condition: Good Instructions (If sedation given, give patient instructions): Acute Headache (ED) Additional Instructions: Follow-up with your regular physician as directed. Return to the ER immediately if any symptoms worsen, new symptoms arise, or any other problems develop. Is patient prescribed a controlled substance at d/c from ED?: No Referrals: Mariam Bangura MD [STAFF PHYSICIAN] - 01/13/22 8:00 am Chiki Tarango Jr, DO [Primary Care Provider] - 01/13/22 8:00 am Time of Disposition: 02:44
[2022-01-11 00:22] LABS: Basophils # (A) 0.1 k/uL (0-0.2); Basophils % (A) 1 %; Eosinophils # (A) 0.1 k/uL (0-0.7); Eosinophils % (A) 1 %; HCT 42.9 % (34.0-46.0); HGB 14.6 gm/dL (11.4-16.0); Lymphocytes # (A) 3.4 k/uL (1.0-4.8); Lymphocytes % (A) 26 %; MCH 31.7 pg (25.0-35.0); MCV 93.1 fL (80.0-100.0); Monocytes # (A) 0.6 k/uL (0-1.0); Monocytes % (A) 5 %; Neutrophils # (A) 8.6 k/uL (1.3-7.7); Neutrophils % (A) 66 %; Platelet Count 255 k/uL (150-450); RBC 4.61 m/uL (3.80-5.40); RDW 12.5 % (11.5-15.5); WBC 13.1 k/uL (3.8-10.6)
[2022-01-11 00:28] LABS: ALT 60 U/L (4-34); AST 34 U/L (14-36); African American GFR (CKD) >90 (>60 ml/min/1.73 sqM); Albumin 4.9 g/dL (3.5-5.0); Alkaline Phosphatase 58 U/L (38-126); Anion Gap 12 mmol/L; Blood Urea Nitrogen 11 mg/dL (7-17); Calcium 9.2 mg/dL (8.4-10.2); Carbon Dioxide 23 mmol/L (22-30); Chloride 104 mmol/L (98-107); Glucose 101 mg/dL (74-99); Non-African American GFR(CKD) >90 (>60 ml/min/1.73 sqM); Potassium 3.9 mmol/L (3.5-5.1); Sodium 139 mmol/L (137-145); Total Bilirubin 1.4 mg/dL (0.2-1.3); Total Protein 7.8 g/dL (6.3-8.2)
[2022-01-11 00:54] VITALS: BP 135/96; PULSE 80
--- NOTE | 2022-01-11 11:35 | CT ---
EXAMINATION TYPE: XR abdomen 1V DATE OF EXAM: 01/11/2022 COMPARISON: NONE HISTORY: Weakness TECHNIQUE: Images obtained from the aortic arch to the vertex of the brain with IV contrast. There ar e 3-D post processed images. FINDINGS: There is normal branching pattern of the great vessels on the aortic arch. There is bilater al arterial flow in the subclavian arteries. There is arterial flow in the common internal and home care specialist al carotid arteries bilaterally. There is wide patency of the carotid artery bifurcations. There is a rterial flow in both vertebral arteries. There is arterial flow in the vertebrobasilar artery system. No stenosis. No evidence of carotid or vertebral artery aneurysm or dissection. There is arterial flow in the anterior middle and posterior cerebral arteries bilaterally. No mass ef fect. No evidence of intracranial aneurysm or neovascularity. No evidence of intracranial hemodynamic arterial stenosis. There is normal enhancement of the venous sinuses. The posterior cerebral arteries fill mostly throug h the basilar artery. IMPRESSION: Negative CT angiogram of the neck. Negative CT angiogram of the brain.
--- NOTE | 2022-01-11 11:35 | CT ---
CT scan of the brain. History weakness. Comparison none. FINDINGS: Images of the brain obtained without contrast. Ventricles of normal size. There is no mass effect or midline shift. No sign of intracranial hemorrha ge. The calvarium is intact. No evidence of cerebral edema. Skull base is intact. IMPRESSION: Negative unenhanced head CT scan.
== END 2022-01-11 12:58 | disposition home or self-care (01) ==
LOC: EC 23:32
DX: G43.909 Migraine, unspecified, not intractable, without status migrainosus (principal); K21.9 Gastro-esophageal reflux disease without esophagitis; M19.90 Unspecified osteoarthritis, unspecified site; E07.9 Disorder of thyroid, unspecified; F41.9 Anxiety disorder, unspecified; Z88.8 Allergy status to other drugs, medicaments and biological substances; Z79.899 Other long term (current) drug therapy; Z20.822 Contact with and (suspected) exposure to COVID-19
CPT/HCPCS: 99284 ×2; 96374 ×2; 96375 ×3; 96361 ×2; 36415; 80053; 85025; 84703; 87635; 70496; 70450; 70498; J2270; J1200; J2765; Q9967

== ENCOUNTER → 2023-04-13 | Outpatient (CLI) | payer BC ==
--- NOTE | 2023-04-14 00:11 | MR ---
EXAMINATION TYPE: MR brain wo/w cspine wo DATE OF EXAM: 04/13/2023 COMPARISON: CT brain January 11, 2022. Outside cervical spine x-ray April 08, 2023 HISTORY: Vision disturbances, Neck pain, Numbness/tingling in head, arms, legs, Muscle spasms and wea kness, Rt side worse. Cervicalgia. TECHNIQUE: Multiplanar, multisequence images of the brain and brainstem is performed without and with IV contras t, utilizing 8.5 mL intravenous Gadavist . MRI cervical spine without contrast. FINDINGS: BRAIN: Diffusion weighted images demonstrate no evidence of a recent infarct or other diffusion abnormality. There is no extra-axial fluid collection or significant white matter signal abnormality. The ventr icular system and cisternal spaces are normal in size and appearance. The brain volume is age approp riate. Midline structures demonstrate normal morphology. The craniocervical junction appears within normal limits. Post contrast images demonstrate no abnormal enhancement. The dural venous sinuses appear pa tent. The visualized sinuses are clear and the globes are intact. IMPRESSION: Unremarkable study. C-SPINE: Sagittal images of the cervical spine show the craniocervical junction to appear within normal limits . The cervical and upper thoracic spinal cord is normal in course, caliber, and signal. There is sli ght grade 1 retrolisthesis C3 on C4 with more prominent grade 1 retrolisthesis C4 on C5 and C5 on C6. The vertebral body and intravertebral disk heights are normal. The bone marrow signal intensity is within normal limits. Axial images show C2-C3 and C3-C4 levels to appear within normal limits. Axial images at C4-C5 level shows subtle spondylolisthesis with broad-based posterior disc protrusion and uncovertebral facet degenerative change causing [id number] right greater than left bilater al neural foraminal narrowing and minimal effacement of the anterior thecal sac. Axial images at C5-C6 level shows spondylolisthesis with broad-based posterior disc protrusion effaci ng the anterior thecal sac and facet degenerative change causing [id number] right-sided neural foraminal narrowing. Axial images at C6-C7 and C7-T1 levels appear within normal limits. IMPRESSION: Multilevel spondylolisthesis and degenerative change greatest in the mid cervical spine a s detailed above.
== END | disposition home or self-care (01) ==
LOC: RADMRIMAIN 21:00
PROVIDERS: ATTEND Orthopaedic Surgery
DX: M47.812 Spondylosis without myelopathy or radiculopathy, cervical region (principal); M50.221 Other cervical disc displacement at C4-C5 level; M43.12 Spondylolisthesis, cervical region; H53.9 Unspecified visual disturbance
CPT/HCPCS: 70553; 72141; A9585

== ENCOUNTER → 2023-04-28 | Outpatient (CLI) | payer BC ==
--- NOTE | 2023-04-29 00:16 | MR ---
EXAMINATION TYPE: MR tspine/lspine wo con DATE OF EXAM: 04/28/2023 COMPARISON: NONE HISTORY: Right side numbness and tingling that goes down right leg, no pain. Lumbar region radiculopa thy. TECHNIQUE: Multiplanar, multisequence imaging of the thoracic and lumbar spine are performed without IV contrast. FINDINGS: T-SPINE: Spinal cord shows normal course, caliber, and signal as it courses the thoracic spine. Vertebral bod y heights and alignment are satisfactory. No large posterior disc herniations are seen. Bone marrow signal intensity is maintained. Review of the axial images shows no significant spinal canal stenosis or neural foraminal narrowing a t any thoracic level. Visualized thorax and upper abdomen are grossly unremarkable. IMPRESSION: No significant abnormality is seen to account for patient's symptoms. L-SPINE: Sagittal images of the lumbar spine show vertebral body heights and alignment to appear satisfactory. Disc desiccation with mild disc space narrowing at L5-S1 level. Posterior annular tear at this level . The conus medullaris is normal in position and signal ending at mid L1 level. Some areas of increa sed T1 and T2 signal involving the L3 and L5 vertebra extend into the visualized sacrum thought to re flect focal fatty infiltration. Axial images show T12-L1 through L4-L5 levels to appear within normal limits. Axial images at L5-S1 level shows tiny central disc protrusion but spinal canal is preserved that the re is increased epidural fat. Bilateral neural foramina are patent. Paraspinal muscle bulk is maintai peter. IMPRESSION: Some degenerative change at the lumbosacral junction as detailed above.
== END | disposition home or self-care (01) ==
LOC: RADMRIMAIN 17:00
PROVIDERS: ATTEND Orthopaedic Surgery
DX: M47.27 Other spondylosis with radiculopathy, lumbosacral region (principal); G51.9 Disorder of facial nerve, unspecified; R32 Unspecified urinary incontinence; R20.0 Anesthesia of skin
CPT/HCPCS: 72146; 72148

== ENCOUNTER → 2023-04-29 | Outpatient (CLI) | payer BC ==
[2023-04-29 10:59] LABS: HCT 43.2 % (37.2-46.3); MCH 31.1 pg (27.0-32.0); MCHC 32.4 g/dL (32.0-37.0); Mean Platelet Volume 11.4 FL (9.5-12.2); NRBC Per 100 WBC 0 X 10*3/uL (0.00-0.01); Platelet Count 306 X 10*3/uL (140-440); WBC 8.41 X 10*3/uL (4.50-10.00)
[2023-04-29 11:33] LABS: Erythrocyte Sedimentation Rate 12 mm/Hr (0-20)
[2023-04-29 11:38] LABS: ALT 113 U/L (8-44); AST 43 U/L (13-35); Albumin 4.4 g/dL (3.8-4.9); Albumin/Globulin Ratio 1.69 Ratio (1.60-3.17); Alkaline Phosphatase 64 U/L (41-126); Blood Urea Nitrogen 16.8 mg/dL (9.0-27.0); C Reactive Protein <0.30 mg/dL (0.00-0.80); Calcium 9.4 mg/dL (8.7-10.3); Carbon Dioxide 23.9 mmol/L (21.6-31.8); Chloride 106 mmol/L (96-109); Estradiol 92.1 pg/mL; Globulin 2.6 g/dL (1.6-3.3); Glucose 95 mg/dL (70-110); Sodium 142 mmol/L (135-145); T4, Free (Free Thyroxine) 1.69 ng/dL (0.80-1.80); Total Bilirubin 0.6 mg/dL (0.3-1.2)
[2023-04-29 12:21] LABS: Follicle Stimulating Hormone 6.3 mIU/mL; Luteinizing Hormone 7.2 mIU/mL
== END | disposition home or self-care (01) ==
LOC: LABWHC1 07:31
PROVIDERS: ATTEND Orthopaedic Surgery
DX: G51.9 Disorder of facial nerve, unspecified (principal); H53.9 Unspecified visual disturbance; R51.9 Headache, unspecified
CPT/HCPCS: 36415; 80053; 82306; 82533; 82607; 82670; 83001; 83002; 83036; 84144; 84207; 84439; 84443; 84481; 85027; 85652; 86140